=== PATIENT | male | born 1960 | race Caucasian/White ===

== ENCOUNTER 2017-04-16 09:55 | Emergency (ER) | payer BC, OTHER ==
[~2017-04-16] VITALS: Ht 182.9 cm; Wt 81.6 kg
[2017-04-16] MEDS ORDERED: methylPREDNISolone 125 MG (Solu-MEDROL) VIAL IM STA (10:22)
--- NOTE | 2017-04-16 10:29 | ED Cough/URI ---
General Chief Complaint: Cough/Cold/Flu Symptoms Stated Complaint: COLD LIKE SYMPTOMS Nursing Triage Note: c/o intermittant fever/cough. Head congestion reported. Onset Saturday. Source: patient History of Present Illness Time seen by provider: 10:15 Initial Comments C/O COUGH AND CONGESTION SINCE Saturday04/13/17 YELLOW NASAL DRAINAGE AND SPUTUM NO SHORTNESS OF BREATH CHEST HURTS TO COUGH HAS HAD FEVER UP TO 102 C/O BODY ACHES CHEST FEELS CONGESTED C/O EARS FEEL FULL NO KNOWN SICK CONTACTS NO HISTORY OF FREQUENT RESPIRATORY PROBLEMS PT SMOKES 1 PPD NO PCP Allergies and Home Medications Allergies Coded Allergies: No Known Drug Allergies (Unverified , 04/16/17) Constitutional: see HPI, fever EENTM: ear pain (FULLNESS), nose congestion, throat pain Respiratory: see HPI, cough, No short of breath, No wheezing Cardiovascular: see HPI Gastrointestinal: no symptoms reported Genitourinary: no symptoms reported Musculoskeletal: see HPI (BODY ACHEST) Skin: no symptoms reported Psychiatric/Neurological: No Symptoms Reported Hematologic/Lymphatic: No Symptoms Reported Immunological/Allergic: no symptoms reported Past Ffezwhh-Llukno-Bugbmm Hx Patient Social History Alcohol Use: Denies Use Recreational Drug Use: No Smoking Status: Current Everyday Smoker (1 PPD) Type Used: Cigarettes Recent Foreign Travel: No Contact w/Someone Who Travel: No Recent Infectious Disease Expo: No Surgeries HX Surgeries: Yes (RIGHT ROTATOR CUFF) Surgeries: Orthopedic Respiratory Hx Respiratory Disorders: No Cardiovascular Hx Cardiac Disorders: Yes (NEVER TAKEN MEDICATIONS OR SEEN FOR HTN--JUST HAS BEEN TOLD IN THE PAST THAT BP WAS HIGH, BUT NEVER FOLLOWED UP WITH ANYONE) Cardiac Disorders: Hypertension Neurological Hx Neurological Disorders: No Genitourinary Hx Genitourinary Disorders: No Gastrointestinal Hx Gastrointestinal Disorders: No Musculoskeletal Hx Musculoskeletal Disorders: No Endocrine Hx Endocrine Disorders: No HEENT HX ENT Disorders: Yes (NO TEETH) Cancer Hx Cancer: No Psychosocial Hx Psychiatric Problems: No Integumentary HX Skin/Integumentary Disorder: No Blood Transfusions Hx Blood Disorders: No Physical Exam Vital Signs Vital Sign - Last 12Hours 04/16/17 10:13 Temp 98.1 Pulse 86 B/P (MAP) 172/113 Pulse Ox 98 O2 Delivery Room Air Capillary Refill : Less Than 3 Seconds General Appearance: WD/WN, no apparent distress HEENT: PERRL/EOMI, pharyngeal erythema, No tonsillar exudate, other (NASAL MUCOSAL EDEMA. NO SINUS TENDERNESS. CLEAR POST NASAL DRAINAGE. 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, no motor/sensory deficits, alert, normal mood/affect, oriented x 3 Skin: normal color, warm/dry Progress/Results/Core Measures Results/Orders My Orders Orders - ALISON DUMONT DO Methylprednisolone Sod Succ (Solu-Medrol (04/16/17 10:22) Rocephin 1000mg Im (04/16/17 10:30) Lidocaine 1% Injection (Xylocaine 1% Inj (04/16/17 10:30) Vital Signs/I&O Vital Sign - Last 12Hours 04/16/17 04/16/17 10:13 10:20 Temp 98.1 Pulse 86 B/P (MAP) 172/113 Pulse Ox 98 O2 Delivery Room Air Room Air Blood Pressure Mean: 132 Departure Impression Impression: Primary Impression: Bronchitis Additional Impressions: Upper respiratory infection Pharyngitis Left serous otitis media Disposition: 01 HOME, SELF-CARE Condition: Stable Departure-Patient Inst. Referrals: NO,LOCAL PHYSICIAN (PCP) Primary Care Physician Patient Instructions: Acute Bronchitis, Adult (DC), Bacterial Upper Respiratory Infection, Adult (DC), Serous Otitis Media (DC), Sore Throat, Adult (DC) Add. Discharge Instructions: TYLENOL 1 GRAM/ MOTRIN 800 MG 4 TIMES A DAY FOR PAIN OR FEVER LOTS OF CLEAR LIQUIDS FOLLOW UP WITH [facility] IN 3-4 DAYS IF NO BETTER All discharge instructions reviewed with patient and/or family. Voiced understanding. Scripts Guaifenesin/Dextromethorphan (Mucinex Dm ER 1,200-60 mg Tab) 1 Each Tbmp.12hr 1 EACH PO BID for 10 Days, #20 EA Prov: ALISON DUMONT DO 04/16/17 Methylprednisolone (Medrol) 4 Mg Tab.ds.pk 4 MG PO UD, #1 PKG Prov: ALISON DUMONT DO 04/16/17 Levofloxacin (Levaquin) 500 Mg Tablet 500 MG PO DAILY for INFECTION, #10 TAB Prov: ALISON DUMONT DO 04/16/17 ALISON DUMONT DO April 16, 2017 10:29
[2017-04-16] MEDS ORDERED: LIDOCAINE 1% INJ 20 ML (XYLOCAINE) VIAL INJ ONE (10:30)
[2017-04-16] MEDS ORDERED: LEVO500T2 PO (10:30)
[2017-04-16] MEDS ORDERED: GUAI1TBM14 PO (10:30)
[2017-04-16] MEDS ORDERED: METH4TAB PO (10:30)
[2017-04-16] MEDS ORDERED: cefTRIAXone 1 GM (ROCEPHIN) VIAL IM ONE (10:30)
[2017-04-16 10:55] VITALS: BP 170/90
== END 2017-04-16 10:55 | disposition home or self-care (01) ==
LOC: EDUNIT# 09:55 → ER 10:00
DX: J40 Bronchitis, not specified as acute or chronic (principal); J06.9 Acute upper respiratory infection, unspecified; H65.92 Unspecified nonsuppurative otitis media, left ear; F17.210 Nicotine dependence, cigarettes, uncomplicated
CPT/HCPCS: 96372; 99282

== ENCOUNTER → 2017-12-03 | Outpatient (CLI) | payer BC ==
[~2017-12-03] MED LIST: GUAI1TBM19 PO; IOHEXOL 350 MG/ML 150 ML (OMNIPAQUE 350) VIAL IV ONE; LEVO500T2 PO; METH4TAB PO; NS 100 ML (IVPB) BAG IV ONE
[2017-12-03 11:42] LABS: BUN/CREATININE RATIO 13; CREATININE SERUM 0.98 MG/DL (0.60-1.30); GFR ESTIMATED > 60
--- NOTE | 2017-12-03 12:39 | Diagnostic Imaging Report ---
PROCEDURE: CT angiography of the chest with contrast. TECHNIQUE: Multiple contiguous axial images were obtained through the chest after uneventful bolus administration of intravenous contrast. Reconstructed CTA MIP acquisitions were also performed. INDICATION: Aortic dilatation. FINDINGS: The pulmonary arterial branches show normal intraluminal opacification and are confirmed widely patent. Aortic root at the sinus of Valsalva is about 4.1 cm. At the level of the sinotubular junction, it was about 3.5 cm. The aorta measures a maximal diameter of 4.1 cm. Arch and descending thoracic aorta are normal in caliber with the vessel distally showing normal tapering. No dissection, mural hemorrhage, or rupture. There is no pleural or pericardial effusion or hemorrhage. There is no hilar, mediastinal, or axillary lymphadenopathy. Some heterogeneous air trapping in the lungs suggestive of COPD. Some peripheral paraseptal cysts, greatest at the apices. There is no pneumothorax and no lung mass or acute infiltrate. There is very slight cylindrical bronchiectasis centrally. The visualized upper abdomen revealed no acute appearing abnormality. IMPRESSION: Mild ectasia of the aortic root. No dissection, mural hemorrhage, or rupture. Negative for PE. Underlying COPD without mass, infiltrate, or chest effusion. No acute appearing abnormality. Dictated by: Dictated on workstation # [id number]
== END ==
LOC: RAD 11:05
PROVIDERS: ATTEND Family Medicine
DX: I77.810 Thoracic aortic ectasia (principal)
CPT/HCPCS: 36415; 71275; 82565; 84520

== ENCOUNTER → 2023-02-13 | Outpatient (CLI) | payer OTHER, BC ==
[~2023-02-13] MED LIST changes: -IOHEXOL 350 MG/ML 150 ML (OMNIPAQUE 350) VIAL IV ONE; -NS 100 ML (IVPB) BAG IV ONE
--- NOTE | 2023-02-13 13:54 | Diagnostic Imaging Report ---
INDICATION: Neck pain. AP, lateral, and odontoid views of cervical spine are obtained. Cervical vertebrae are normal in height and alignment. There has been previous anterior fusion and discectomy from C3 through C7. There is no subluxation. There is no sign of hardware loosening or acute bone abnormality. There is diffuse facet degenerative change. IMPRESSION: Degenerative changes of postop changes and cervical spine with no acute abnormality. Dictated by: Dictated on workstation # [id number]
--- NOTE | 2023-02-13 13:57 | Diagnostic Imaging Report ---
Indication: Back pain AP and lateral views of the lumbar spine are obtained. Patient had previous laminectomy at L4-L5 and previous lumbar fusion from L3 through L5. There is disc space narrowing throughout the lumbar levels with osteophytes most prominent at L2-L3 and L1-L2. There is no sign of hardware loosening. Impression: Postop and degenerative findings of the lumbar spine as described above with no acute-appearing abnormality. Dictated by: Dictated on workstation # [id number]
== END ==
LOC: RAD 10:29
PROVIDERS: ATTEND Family Medicine
DX: Z02.71 Encounter for disability determination (principal); M51.36 Other intervertebral disc degeneration, lumbar region; M25.78 Osteophyte, vertebrae; Z98.890 Other specified postprocedural states
CPT/HCPCS: 72050; 72100